=== PATIENT | female | born 1960 | race Caucasian/White ===

== ENCOUNTER → 2017-08-06 | Outpatient (CLI) | payer OTHER ==
[~2017-08-06] MED LIST: BIOT1TAB12 PO; CYA1000 PO; ESC10 PO; ESCI5TAB10 PO; FLU45SYR25 IM ONLY; FOLI-68 PO; HYDR-2966 PO; MAX75 PO; MULT-865 PO; POTA99TA6 PO
== END ==
LOC: LAB 12:34
PROVIDERS: ATTEND Internal Medicine
DX: R19.7 Diarrhea, unspecified (principal)
CPT/HCPCS: 82274; 83630; 87045; 87177; 87269; 87324; 87449

== ENCOUNTER → 2017-08-10 | Outpatient (CLI) | payer OTHER ==
[~2017-08-10] MED LIST changes: +POTA20TA85 PO
[2017-08-10 11:20] LABS: PLATELET COUNT, AUTOMATED 273 K/uL (150-450)
== END ==
LOC: LAB 11:05
PROVIDERS: ATTEND Internal Medicine
DX: R19.7 Diarrhea, unspecified (principal)
CPT/HCPCS: 36415; 82040; 82247; 82310; 82374; 82435; 82565; 82947; 83516; 84075; 84132; 84155; 84295; 84450; 84460; 84520; 85025

== ENCOUNTER → 2017-08-17 | Outpatient (CLI) | payer OTHER ==
[~2017-08-17] MED LIST changes: +BARIUM SULFATE 600 ML SUSP ONE
--- NOTE | 2017-08-17 10:43 | RADIOLOGY IMAGING REPORT ---
FACILITY: [facility] - [place] PATIENT NAME: Ira Hammond : 1960 MR: [id number] V: [id number] EXAM DATE: ORDERING PHYSICIAN: TONY PARRA TECHNOLOGIST: Location: [facility] Patient: Ira Hammond : 1960 Visit/Account:[id number] Date of Sevice: 08/17/2017 Exam type: SMALL BOWEL SERIES History: Diarrhea x2 1/2 months with weight loss Comparison: None. Findings: The patient was given a barium suspension to swallow. The barium was followed throughout the small b owel to the unremarkable terminal ileum. The mucosal pattern appeared unremarkable. There is no henri dence of bowel dilatation. Transit time to the right-sided the colon was 15 minutes. There was a pa ucity of small bowel loops in the mid abdomen. This may simply be a normal variant. If an intra-abd ominal mass is of clinical concern CT is recommended The fluoroscopy dose area product was 147.36 micro-Rogers per meter squared IMPRESSION: 1. Normal mucosal pattern to the small bowel Rapid transit to the right-sided colon in 15 minutes There is a paucity small bowel loops in the midabdomen which may simply be a normal variant however i f an abdominal mass is of clinical concern CT is recommended Report Dictated By: Yuliana Mae MD at 08/17/2017 10:13 AM Report E-Signed By: Yuliana Mae MD at 08/17/2017 10:39 AM WSN:[email or web address]
== END ==
LOC: RAD 01:36
PROVIDERS: ATTEND Surgery
DX: R19.7 Diarrhea, unspecified (principal); R63.4 Abnormal weight loss; R10.9 Unspecified abdominal pain
CPT/HCPCS: 74250

== ENCOUNTER 2017-08-19 01:57 | Day surgery (SDC) | payer OTHER ==
[~2017-08-19] VITALS: Ht 170.2 cm; Wt 59.0 kg
[~2017-08-19 01:57] MED LIST changes: -BARIUM SULFATE 600 ML SUSP ONE
[2017-08-19] MEDS ORDERED: PROPOFOL EMUL(*) 10MG/ML 20 ML 20 ML ONE ×3 (09:14→12:32)
[2017-08-19 10:02] VITALS: BP 141/94
[2017-08-19] MEDS ORDERED: LIDOCAINE/SOD BICARB 8.4% SYR ID ONE (10:15)
[2017-08-19] MEDS ORDERED: NORMOSOL R SOLN(*) 1000 ML BAG 1,000 ML IV PRN (10:15)
[2017-08-19 12:57] VITALS: BP 111/73
--- NOTE | 2017-08-19 13:13 | Short(Outpt) Discharge Summary ---
Discharge Summary Reason for Hosp/Final Diag: (1) Diarrhea Status: Chronic Hospital Course & Plan: EGD with biopsies and colonoscopy with biopsies completed without problems. (2) Celiac disease Status: Chronic Departure Discharge to: Home, Self Care Discharge Instructions Home Meds Active Scripts Potassium Chloride (KLOR-CON M20) 20 Meq Tab.er.prt, 1 TAB PO QDAY, #30 TAB 0 Refills Prov:SUNNY DIOP MD 08/12/17 Escitalopram Oxalate (LEXAPRO) 10 Mg Tab, 1 TAB PO DAILY, #90 TAB 1 Refill Prov:SUNNY DIOP MD 01/21/17 Triamterene/Hctz (TRIAMTERENE-HCTZ 75-50 MG TAB) 1 Each Tab, 1 EACH PO DAILY, # 90 TAB 0 Refills Prov:SUNNY DIOP MD 04/23/16 Reported Medications Cyanocobalamin (Vitamin B-12) (VITAMIN B-12) 1,000 Mcg Tablet, 1 TAB PO DAILY 11/21/14 Potassium Gluconate (POTASSIUM) 99 Mg Tablet, 2 TAB PO DAILY 11/21/14 Folic Acid (FOLIC ACID) 1 Mg Tablet, 1 TAB PO QDAY, TAB 11/21/14 Discontinued Reported Medications Multivitamin (DAILY MULTIPLE VITAMIN) 1 Each Tablet, 1 TAB PO DAILY 11/21/14 Biotin (BIOTIN) 1 Mg Tablet, 1 TAB PO DAILY 11/21/14 Follow up Referrals: General Surgery - 08/27/17 @ Surgery, General with Tony Parra Md You have a follow up appointment scheduled Dr. Parra on 08/27/17, at 12:00pm. Diet: Regular Activity: As Tolerated Special Instructions: Genna, my nurse, will call you tomorrow to schedule a CT of your abdomen and pelvis. Problem Qualifiers (1) Diarrhea: Diarrhea type: unspecified type Qualified Codes: R19.7 - Diarrhea, unspecified TONY PARRA MD Aug 19, 2017 13:13
--- NOTE | 2017-08-19 15:14 | ULLRICH EGD ---
EVENT DATE: August 19, 2017 SURGEON: Walker Núñez MD ANESTHESIOLOGIST: Rick Liang MD ANESTHESIA: TIVA SEISMIC ENGINEER: Staff PREPROCEDURAL DIAGNOSES 1. Diarrhea. 2. History of celiac disease. POSTPROCEDURAL DIAGNOSES 1. Diarrhea. 2. History of celiac disease. PROCEDURES PERFORMED 1. Esophagogastroduodenoscopy with biopsies. 2. Colonoscopy with biopsies. COMPLICATIONS None. CONDITION Stable. BLOOD LOSS Minimal. FINDINGS This patient's EGD was unremarkable. There was no inflammation or ulcerations. The colonoscopy was essentially normal, although there was some mucosal edema , but this could be due to her chronic diarrhea or even the bowel prep. There was some loss of vasculature, but there were no ulcerations. There was some mucus in her colon. SPECIMENS 1. Duodenum. 2. PyloriTek. 3. Terminal ileum. 4. Random colon. INDICATIONS This is a 56-year-old female who has a long history of celiac disease that traditionally has been well controlled on a gluten-free diet, who over the last three months has developed a watery diarrhea. She will have anywhere between four to six watery bowel movements a day. She has some mild cramps with the diarrhea, but no blood. She has some mucus in her stools. She has been losing some weight as well. With this information, we consented her for EGD and colonoscopy as part of the workup for her diarrhea. DESCRIPTION OF PROCEDURE The patient was brought to the endoscopy suite and placed in a left lateral decubitus position on the gurney. TIVA was administered, and a bite block was placed in her mouth. The endoscope was then tested to ensure it was completely functional. It was lubricated and inserted into her mouth through the bite block. I advanced the scope all the way through to the third portion of the duodenum and slowly withdrew the scope as I looked at all mucosal surfaces for any abnormalities. I then took four samples of the duodenum, two from the bulb and two from the second portion of the duodenum, and these were sent for permanent to rule out villous blunting or other inflammatory conditions. I took three samples of gastric antrum, and these were sent for PyloriTek to look for an active H. pylori infection. I then retroflexed the scope in the stomach to look at the fundus and the GE junction from the gastric side, and everything appeared unremarkable. There were no ulcers or inflammation in the duodenum or the stomach. The scope was straightened out and then withdrawn into her distal esophagus, and I inspected the GE junction which appeared normal. I then inspected the entire esophagus which appeared unremarkable. The scope was removed from her body, and then we set up for colonoscopy. A digital rectal exam was completely unremarkable. The colonoscopy was tested to ensure it was completely functional. It was lubricated and inserted into her rectum through the anus. I advanced the scope all the way through to the terminal ileum and slowly withdrew the scope as I looked at all mucosal surfaces for any abnormalities. When the tip was in the rectum, I retroflexed it to look at the anus from the rectal side. I then desufflated the rectum and then removed the scope from her body. I did biopsies of the terminal ileum as well as throughout her colon. Her colon had some mucosal edema with loss of vascular markings, but no ulcerations or other obvious evidence of inflammation, although she did have some mucus in her colon. The patient was awakened and transported to the recovery area in good condition having tolerated the procedure without any apparent problems. LUIS
== END 2017-08-19 13:25 | disposition home or self-care (01) ==
LOC: OR 01:57
PROVIDERS: ATTEND Surgery
DX: K90.0 Celiac disease (principal); R19.7 Diarrhea, unspecified
CPT/HCPCS: 00811; 43239; 45380; 87077; 88305; J2704

== ENCOUNTER → 2017-08-23 | Outpatient (CLI) | payer OTHER ==
[~2017-08-23] MED LIST changes: +IOPAMIDOL 76% 100 ML INFUS BTL 100 ML ONE
--- NOTE | 2017-08-23 09:42 | RADIOLOGY IMAGING REPORT ---
FACILITY: [facility] - [place] PATIENT NAME: Ira Hammond : 1960 MR: [id number] V: [id number] EXAM DATE: ORDERING PHYSICIAN: TONY PARRA TECHNOLOGIST: Location: [facility] [place] Patient: Ira Hammond : 1960 Visit/Account:[id number] Date of Sevice: 08/23/2017 ABDOMEN/PELVIS W/WO CONTRAST HISTORY: Diarrhea, celiac disease TECHNIQUE: Axial images acquired through the abdomen/pelvis both with and without IV contrast.. Stacey nal and sagittal reformatting also performed. Dose Lowering Technique One of the following dose optimization techniques was utilized in the performance of this exam: Autom ated exposure control; adjustment of the mA and/or kV according to the patient's size; or use of an i terative reconstruction technique. Specific details can be referenced in the facility's radiology C T exam operational policy. CONTRAST: 80 mL Isovue-370 COMPARISON: Small bowel follow-through August 17, 2017 FINDINGS: Visualized lung bases: Negative. Hepatobiliary: Negative. Spleen: Negative. Adrenals: Negative. Pancreas: Negative. 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 The right renal artery takes its origin from the left common iliac artery. No evidence of hydronephrosis or urolithiasis Genitalia: Uterus appears atrophic. There is mild thickening of the endometrial cavity measuring ap proximately 10 mm in thickness which is above normal for postmenopausal woman GI: There is a 3.4 cm long segment of narrowing in the sigmoid colon with mild thickening of the adj acent estrella. This may represent an area of spasm versus a true narrowing. The small bowel appears u nremarkable. Vessels/spaces/nodes: There is a high aortic bifurcation of incidental note. No pathologic-appearin g adenopathy Bones/soft tissues: There is a gentle S-shaped scoliosis of the lumbar spine. There are moderate sp ondylotic changes in the visualized lower thoracic spine Additional findings: None pertinent. 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 Uterus appears atrophic. There is mild thickening the endometrial cavity measuring approximately 10 mm in thickness which is above normal for postmenopausal woman. Pelvic ultrasound may be helpful There is a 3.4 cm long segment of narrowing in the sigmoid colon with mild thickening of the wall. T his may represent an area of spasm versus a true narrowing. Small bowel appears unremarkable Report Dictated By: Yuliana Mae MD at 08/23/2017 9:18 AM Report E-Signed By: Yuliana Mae MD at 08/23/2017 9:38 AM WSN:[email or web address]
== END ==
LOC: CT 01:45
PROVIDERS: ATTEND Surgery
DX: Q63.2 Ectopic kidney (principal); N85.8 Other specified noninflammatory disorders of uterus
CPT/HCPCS: 74178; Q9967

== ENCOUNTER 2017-08-30 21:16 | Emergency (ER) | payer OTHER ==
[~2017-08-30 21:16] MED LIST changes: -IOPAMIDOL 76% 100 ML INFUS BTL 100 ML ONE; +LACT1CAP69 PO
--- NOTE | 2017-08-30 21:18 | ER Report ---
History and Physical Time Seen By MD: 21:18 HPI/ROS CHIEF COMPLAINT: Vomiting HISTORY OF PRESENT ILLNESS: 56-year-old female with a history of celiac disease who was recently undergone extensive evaluation by Dr. Yancey for diarrhea over the last 3 months. She's undergone endoscopy, colonoscopy, CT scan, small bowel follow-through. Biopsies of the colonic mucosa show lymphocytic colitis. Patient notes severe mid abdominal cramping since this morning. When she was in the shower this morning she began to feel ill. She had dry heaves that she got out of the shower. She's had numerous bouts of dry heaves throughout the day. She's developed a mild headache 5/10 this afternoon. She continues to have vomiting. She notes no fever or chills. She denies dysuria. She's had no previous abdominal surgery. REVIEW OF SYSTEMS: Respiratory: No cough, no dyspnea. Cardiovascular: No chest pain, no palpitations. Gastrointestinal: As above Musculoskeletal: No back pain. Allergies: Coded Allergies: gluten (Verified Allergy, Intermediate, N,V,D, 02/12/16) Home Meds Active Scripts Ondansetron (ZOFRAN ODT) 4 Mg Tab.rapdis, 4 MG PO every 6 hours Y for NAUSEA/ VOMITING, #20 TAB TAKE 1 TABLET BY MOUTH EVERY 12 HOURS Prov:JEROMY BOURGEOIS DO 08/30/17 Lact Cmb2/S.thermophl/Bif Cmb1 (VSL#3 CAPSULE) 1 Each Capsule, 1 CAP PO DAILY, # 60 CAPSULE 6 Refills Prov:TONY PARRA MD 08/27/17 Potassium Chloride (KLOR-CON M20) 20 Meq Tab.er.prt, 1 TAB PO QDAY, #30 TAB 0 Refills Prov:SUNNY DIOP MD 08/12/17 Escitalopram Oxalate (LEXAPRO) 10 Mg Tab, 1 TAB PO DAILY, #90 TAB 1 Refill Prov:SUNNY DIOP MD 01/21/17 Triamterene/Hctz (TRIAMTERENE-HCTZ 75-50 MG TAB) 1 Each Tab, 1 EACH PO DAILY, # 90 TAB 0 Refills Prov:SUNNY DIOP MD 04/23/16 Reported Medications Cyanocobalamin (Vitamin B-12) (VITAMIN B-12) 1,000 Mcg Tablet, 1 TAB PO DAILY 11/21/14 Potassium Gluconate (POTASSIUM) 99 Mg Tablet, 2 TAB PO DAILY 11/21/14 Folic Acid (FOLIC ACID) 1 Mg Tablet, 1 TAB PO QDAY, TAB 11/21/14 Reviewed Nurses Notes: Yes Old Medical Records Reviewed: Yes Hx Smoking: Yes (VARIED 5CIGS TO 1PPD FOR 15 YRS) Smoking Status: Former Smoker Exposure to Second Hand Smoke?: Yes Hx Alcohol Use: Yes Constitutional Vital Sign - Last 24 Hours 08/30/17 08/30/17 08/30/17 08/30/17 21:20 21:30 21:31 21:46 Temp 98.3 Pulse 66 77 69 Resp 16 B/P (MAP) 172/113 168/109 (128) Pulse Ox 94 96 O2 Delivery Room Air 08/30/17 08/30/17 08/30/17 08/30/17 22:01 22:16 22:31 22:46 Pulse 73 69 71 79 Pulse Ox 95 95 96 95 08/30/17 08/30/17 08/30/17 08/30/17 22:51 23:06 23:21 23:36 Pulse 68 73 77 73 Pulse Ox 94 95 95 94 08/30/17 23:41 B/P (MAP) 139/94 (109) Physical Exam Vital signs stable, afebrile, pulse ox normal General Appearance: The patient is alert, has no immediate need for airway protection and no current signs of toxicity. Mild distress, slightly pale appearing, skin warm and dry HEENT: Pupils equal and round no injection. Oropharynx with mild erythema, no exudate, mucous membranes are moist Respiratory: Chest is non tender, lungs are clear to auscultation. Cardiac: regular rate and rhythm Gastrointestinal: Abdomen is soft and non tender, no masses, bowel sounds are hyperactive Musculoskeletal: Neck: Neck is supple and non tender. No lymphadenopathy Extremities have full range of motion and are non tender. No edema Skin: No rashes or lesions. DIFFERENTIAL DIAGNOSIS: After history and physical exam differential diagnosis was considered for abdominal pain including but not limited to appendicitis, cholecystitis, gastritis, gastroenteritis, viral syndrome, food poisoning, celiac flare and urinary tract infection. Medical Decision Making Data Points Result Diagram: 08/30/17213408/30/172134 Laboratory Hematology Test 08/30/17 21:21 08/30/17 21:35 Urine Color Yellow Urine Clarity Clear Urine pH 5.0 pH (4.8-9.5) Urine Specific Patterson 1.021 Urine Protein Negative mg/dL (NEGATIVE) Urine Glucose (UA) Negative mg/dL (NEGATIVE) Urine Ketones 20 mg/dL (NEGATIVE) Urine Blood Negative (NEGATIVE) Urine Nitrite Negative (NEGATIVE) Urine Bilirubin Negative (NEGATIVE) Urine Urobilinogen Negative mg/dL (0.2-1.9) Urine Leukocyte Esterase Trace (NEGATIVE) Urine RBC <1 /HPF (0-2/HPF) Urine WBC 10 /HPF (0-5/HPF) Urine Squamous Epithelial Cells Moderate /LPF (</=FEW) Urine Bacteria Negative /HPF (NONE-FEW) Urine Mucus Few /HPF (NONE-FEW) Red Blood Count 4.42 M/uL (4.17-5.56) Mean Corpuscular Volume 99.9 fL (80.0-96.0) Mean Corpuscular Hemoglobin 35.3 pg (26.0-33.0) Mean Corpuscular Hemoglobin Concent 35.4 g/dL (32.0-36.0) Red Cell Distribution Width 14.6 % (11.5-14.5) Mean Platelet Volume 8.5 fL (7.2-11.1) Neutrophils (%) (Auto) 72.4 % (39.4-72.5) Lymphocytes (%) (Auto) 18.3 % (17.6-49.6) Monocytes (%) (Auto) 8.6 % (4.1-12.4) Eosinophils (%) (Auto) 0.2 % (0.4-6.7) Basophils (%) (Auto) 0.5 % (0.3-1.4) Nucleated RBC Relative Count (auto) 0.0 /100WBC Neutrophils # (Auto) 5.4 K/uL (2.0-7.4) Lymphocytes # (Auto) 1.3 K/uL (1.3-3.6) Monocytes # (Auto) 0.6 K/uL (0.3-1.0) Eosinophils # (Auto) 0.0 K/uL (0.0-0.5) Basophils # (Auto) 0.0 K/uL (0.0-0.1) Nucleated RBC Absolute Count (auto) 0.00 K/uL Sodium Level 138 mmol/L (137-145) Potassium Level 3.3 mmol/L (3.5-5.0) Chloride Level 95 mmol/L (98-107) Carbon Dioxide Level 29 mmol/L (22-31) Blood Urea Nitrogen 18 mg/dl (7-18) Creatinine 0.80 mg/dl (0.52-1.04) Glomerular Filtration Rate Calc > 60.0 Random Glucose 98 mg/dl (75-110) Lactate 1.6 mmol/L (0.7-2.1) Calcium Level 10.3 mg/dl (8.4-10.2) Total Bilirubin 0.7 mg/dl (0.2-1.3) Aspartate Amino Transf (AST/SGOT) 30 U/L (0-35) Alanine Aminotransferase (ALT/SGPT) 33 U/L (0-56) Alkaline Phosphatase 103 U/L (0-126) Total Protein 8.6 g/dl (6.3-8.2) Albumin 5.0 g/dl (3.5-5.0) Amylase Level 123 U/L (0-110) Lipase 47 U/L (23-300) Chemistry Test 08/30/17 21:21 08/30/17 21:35 Urine Color Yellow Urine Clarity Clear Urine pH 5.0 pH (4.8-9.5) Urine Specific Patterson 1.021 Urine Protein Negative mg/dL (NEGATIVE) Urine Glucose (UA) Negative mg/dL (NEGATIVE) Urine Ketones 20 mg/dL (NEGATIVE) Urine Blood Negative (NEGATIVE) Urine Nitrite Negative (NEGATIVE) Urine Bilirubin Negative (NEGATIVE) Urine Urobilinogen Negative mg/dL (0.2-1.9) Urine Leukocyte Esterase Trace (NEGATIVE) Urine RBC <1 /HPF (0-2/HPF) Urine WBC 10 /HPF (0-5/HPF) Urine Squamous Epithelial Cells Moderate /LPF (</=FEW) Urine Bacteria Negative /HPF (NONE-FEW) Urine Mucus Few /HPF (NONE-FEW) White Blood Count 7.4 k/uL (4.5-11.0) Red Blood Count 4.42 M/uL (4.17-5.56) Hemoglobin 15.6 g/dL (12.0-16.0) Hematocrit 44.2 % (34.0-47.0) Mean Corpuscular Volume 99.9 fL (80.0-96.0) Mean Corpuscular Hemoglobin 35.3 pg (26.0-33.0) Mean Corpuscular Hemoglobin Concent 35.4 g/dL (32.0-36.0) Red Cell Distribution Width 14.6 % (11.5-14.5) Platelet Count 294 K/uL (150-450) Mean Platelet Volume 8.5 fL (7.2-11.1) Neutrophils (%) (Auto) 72.4 % (39.4-72.5) Lymphocytes (%) (Auto) 18.3 % (17.6-49.6) Monocytes (%) (Auto) 8.6 % (4.1-12.4) Eosinophils (%) (Auto) 0.2 % (0.4-6.7) Basophils (%) (Auto) 0.5 % (0.3-1.4) Nucleated RBC Relative Count (auto) 0.0 /100WBC Neutrophils # (Auto) 5.4 K/uL (2.0-7.4) Lymphocytes # (Auto) 1.3 K/uL (1.3-3.6) Monocytes # (Auto) 0.6 K/uL (0.3-1.0) Eosinophils # (Auto) 0.0 K/uL (0.0-0.5) Basophils # (Auto) 0.0 K/uL (0.0-0.1) Nucleated RBC Absolute Count (auto) 0.00 K/uL Glomerular Filtration Rate Calc > 60.0 Lactate 1.6 mmol/L (0.7-2.1) Calcium Level 10.3 mg/dl (8.4-10.2) Total Bilirubin 0.7 mg/dl (0.2-1.3) Aspartate Amino Transf (AST/SGOT) 30 U/L (0-35) Alanine Aminotransferase (ALT/SGPT) 33 U/L (0-56) Alkaline Phosphatase 103 U/L (0-126) Total Protein 8.6 g/dl (6.3-8.2) Albumin 5.0 g/dl (3.5-5.0) Amylase Level 123 U/L (0-110) Lipase 47 U/L (23-300) Urinalysis Test 08/30/17 21:21 Urine Color Yellow Urine Clarity Clear Urine pH 5.0 pH (4.8-9.5) Urine Specific Patterson 1.021 Urine Protein Negative mg/dL (NEGATIVE) Urine Glucose (UA) Negative mg/dL (NEGATIVE) Urine Ketones 20 mg/dL (NEGATIVE) Urine Blood Negative (NEGATIVE) Urine Nitrite Negative (NEGATIVE) Urine Bilirubin Negative (NEGATIVE) Urine Urobilinogen Negative mg/dL (0.2-1.9) Urine Leukocyte Esterase Trace (NEGATIVE) Urine RBC <1 /HPF (0-2/HPF) Urine WBC 10 /HPF (0-5/HPF) Urine Squamous Epithelial Cells Moderate /LPF (</=FEW) Urine Bacteria Negative /HPF (NONE-FEW) Urine Mucus Few /HPF (NONE-FEW) ED Course/Re-evaluation Clinical Indication for ER IV: Hydration, IV Access ED Course Patient was admitted to an examination room. H&P was done. The differential diagnosis was considered. On clinical examination. She has a benign nonsurgical abdomen. She has hyperactive bowel sounds. She's been having abdominal cramps all day long. She's been worked up over the last 3 months for recurrent worsening diarrhea from her celiac disease. She was diagnosis with lymphocytic colitis. Patient was treated with IV fluid hydration and Zofran 4 mg. She tolerates a popsicle oral challenge. She does have more nausea. She' s given Phenergan 12.5 mg IV. Her diagnostic studies are unremarkable. Patient 's advised clear liquid diet for the next 24 hours. Patient given a prescription for Zofran. Patient advised to follow-up with Dr. Yancey if her symptoms persist. Decision to Disposition Date: Aug 30, 2017 Decision to Disposition Time: 22:41 Depart Departure Latest Vital Signs Vital Signs Date Time Temp Pulse Resp B/P (MAP) Pulse Ox O2 Delivery O2 Flow Rate FiO2 08/30/17 23:41 139/94 (109) 08/30/17 23:36 73 94 08/30/17 21:20 98.3 16 Room Air Impression: Primary Impression: Vomiting Additional Impressions: Abdominal cramps History of celiac disease Condition: Improved Disposition: HOME OR SELF-CARE Referrals: SUNNY DIOP MD (PCP) New Scripts Ondansetron (ZOFRAN ODT) 4 Mg Tab.rapdis 4 MG PO every 6 hours Y for NAUSEA/VOMITING, #20 TAB TAKE 1 TABLET BY MOUTH EVERY 12 HOURS Prov: JEROMY BOURGEOIS DO 08/30/17 Patient Instructions: Acute Nausea and Vomiting (ED), Clear Liquid Diet (ED) Additional Instructions: Follow clear liquid diet for 24 hours, then advance as tolerated Use Zofran 4 mg sublingual to control your vomiting as needed Follow-up with Dr. Yancey if your symptoms persist beyond 2-3 days Problem Qualifiers Primary Impression: Vomiting Vomiting type: unspecified Vomiting Intractability: intractable Nausea presence: with nausea Qualified Codes: R11.2 - Nausea with vomiting, unspecified JEROMY BOURGEOIS DO Aug 30, 2017 21:18
[2017-08-30] MEDS ORDERED: NS(*) 0.9% 1000 ML BAG 1,000 ML IV ONE (21:33)
[2017-08-30] MEDS ORDERED: fentaNYL CITR 100 MCG/2 ML AMP IVP ONE (21:35)
[2017-08-30] MEDS ORDERED: ONDANSETRON 4 MG/2 ML VIAL IVP ONE (21:35)
[2017-08-30 21:43] LABS: PLATELET COUNT, AUTOMATED 294 K/uL (150-450)
[2017-08-30] MEDS ORDERED: ONDA4TAB PO (22:43)
[2017-08-30] MEDS ORDERED: ONDANSETRON 4 MG ODT TH SL ONE (22:45)
[2017-08-30] MEDS ORDERED: PROMETHAZINE 25 MG/ML 1 ML AMP IVP ONE (23:25)
[2017-08-30 23:41] VITALS: BP 139/94
== END 2017-08-30 23:46 | disposition home or self-care (01) ==
LOC: ER 21:29
DX: K90.0 Celiac disease (principal); R10.9 Unspecified abdominal pain; R11.2 Nausea with vomiting, unspecified
CPT/HCPCS: 81001; 82150; 83605; 83690; 85025; 87088; 96361; 96374; 96375; 99284; J2405; J2550; J3010; J7030; S0119; 82040; 82247; 82310; 82374; 82435; 82565; 82947; 84075; 84132; 84155; 84295; 84450; 84460; 84520

== ENCOUNTER → 2017-09-01 | Outpatient (CLI) | payer OTHER ==
[~2017-09-01] MED LIST changes: +ONDA4TAB PO
--- NOTE | 2017-09-01 11:51 | RADIOLOGY IMAGING REPORT ---
[place] [facility] [place] Ira Hammond : 1960 MR: [id number] V: [id number] EXAM DATE: ORDERING PHYSICIAN: TONY PARRA TECHNOLOGIST: Location: [facility] Patient: Ira Hammond : 1960 Visit/Account:[id number] Date of Sevice: 09/01/2017 EXAMINATION: Transabdominal and transvaginal pelvic ultrasound with duplex Doppler evaluation HISTORY: Thickened endometrium on CT.; LMP: Postmenopausal COMPARISON: CT scan 08/23/2017 FINDINGS: Uterus: 5.2 cm length x 3.6 cm transverse x 3.4 cm AP. Myometrium: Subcentimeter hypoechoic submucosal lesion may be a atrophic fibroid measuring 6 mm in gr eatest dimension. Endometrium: Homogeneous, 5 mm in greatest double thickness. Cervix: Negative. Ovaries: Right ovary 2 x 1.7 x 1.3 cm, no mass or cyst. Left ovary 1.9 x 2.4 x 1.5 cm, no mass or cy st. Blood flow is documented in each ovary by Doppler ultrasound. Free pelvic fluid: None. Pelvic vessels: Normal Bladder: Empty IMPRESSION: 1. Homogeneous endometrium measuring 5 mm in thickness. 2. Probable small subcentimeter submucosal fibroid. Report Dictated By: Genna Lopez MD at 09/01/2017 11:31 AM Report E-Signed By: Genna Lopez MD at 09/01/2017 11:47 AM WSN:[email or web address]
== END ==
LOC: US 01:53
PROVIDERS: ATTEND Surgery
DX: D25.9 Leiomyoma of uterus, unspecified (principal); R93.8 Abnormal findings on diagnostic imaging of other specified body structures
CPT/HCPCS: 76856